=== PATIENT | male | born 1960 | race African-American/Black ===

== ENCOUNTER 2024-05-30 10:46 | Day surgery (SDC) | payer MEDICAID ==
[~2024-05-30] VITALS: Ht 180.3 cm; Wt 136.4 kg
[~2024-05-30 10:46] MED LIST: ROXICODONE 55 MG/TAB PO
[2024-05-30] MEDS ORDERED: LASIX 40MG TABL40 MG PO (11:49)
[2024-05-30] MEDS ORDERED: ASPIRIN 81M81 MG/TA2 PO (11:49)
[2024-05-30] MEDS ORDERED: LIPITOR 40MG TA40 MG PO (11:50)
[2024-05-30] MEDS ORDERED: CARAFATE 1GM1 G PO (11:50)
[2024-05-30] MEDS ORDERED: NORVASC 5MG5 MG/TAB PO (11:51)
[2024-05-30] MEDS ORDERED: NEURONTIN300 MG/CAP PO (11:51)
[2024-05-30] MEDS ORDERED: ELIQUIS 5MG PO (11:52)
[2024-05-30] MEDS ORDERED: K-DUR20 MEQ PO (11:52)
[2024-05-30] MEDS ORDERED: IMDUR 30MG30 MG/TAB PO (11:53)
[2024-05-30] MEDS ORDERED: LOPRESSOR 225 MG/TAB PO (11:53)
[2024-05-30] MEDS ORDERED: NITROSTAT0.4 MG/TAB SL (11:54)
[2024-05-30] MEDS ORDERED: ANTIVERT 25MG25 MG PO (11:54)
[2024-05-30] MEDS ORDERED: ALBUTEROL0.83 MG/ML IH (11:55)
[2024-05-30 12:08] VITALS: BP 138/75; PULSE 61; TEMP 97.7
[2024-05-30 14:40] VITALS: BP 115/89; PULSE 65
--- NOTE | 2024-05-30 15:15 | NUR ---
Discharge instructions given to pt.pt verbalizes understanding.Dressing to chest observed clean,dry,intact.Pt escorted out by this nurse.
== END 2024-05-30 15:56 ==
LOC: COL.CAR 10:46
DX: I48.91 Unspecified atrial fibrillation (principal)
CPT/HCPCS: C1764